=== PATIENT | male | born 1990 | race Caucasian/White ===

== ENCOUNTER 2018-02-19 22:16 | Emergency (ER) | payer OTHER ==
[2018-02-19] MEDS ORDERED: CEPHALEXIN 500 MG CAP PO ONE (23:31)
[2018-02-19] MEDS ORDERED: CEPHALEXIN 500MG PREPACK#4 BTL TAKEHOME ONE (23:31)
[2018-02-19] MEDS ORDERED: TDAP ADULT 0.5 ML INJ (BOOSTRIX) IM ONE (23:31)
--- NOTE | 2018-02-19 23:31 | EDPHY ---
H & P Stated Complaint: elbow to lip, lip lac , 45 min ago, no loc Time Seen by Provider: 02/19/18 23:31 HPI/ROS: HPI CHIEF COMPLAINT: Elbow to face, left upper lip laceration through and through. HISTORY OF PRESENT ILLNESS: Very pleasant 27-year-old male, otherwise healthy without any significant medical history he is unsure of his tetanus shot is up- to-date, he presents emergency room after was playing basketball tonight and had an elbow strike his face. He sustained a left upper lip laceration. The characteristics of the lip laceration are complex it is a jagged 3 piece lip laceration through and through and involve the vermilion border in a jagged area 1 whole laceration but 3 edges. Patient states he elbow struck his face struck his left upper lip his tooth caused the through and through lip laceration. Denies any other areas of trauma, denies LOC. Denies significant facial pain. Past Medical History: Denies significant medical history Past Surgical History: No significant surgical history Social History: Denies drugs alcohol tobacco. Family History: Noncontributory ROS REVIEW OF SYSTEMS: A comprehensive 10 point review of systems is otherwise negative aside from elements mentioned in the history of present illness. Exam Constitutional triage nursing summary reviewed, vital signs reviewed, awake/ alert. Eyes normal conjunctivae and sclera, EOMI, PERRLA. Oropharynx: Left upper lip: This shows a 3 cm jagged 3 piece laceration that involves the vermilion border of the left upper lateral lip. It goes through and through the left upper lip. The inner left upper oral lip laceration is 3 cm in length. Gaping. The external left upper lip laceration is jagged involves the vermilion border goes through the vermilion border and has a 3 segment piece. There is a v-shaped piece laceration in between the 2 edges of the laceration. Dentition intact. HENT normal inspection, atraumatic, moist mucus membranes, no epistaxis, neck supple/ no meningismus, no raccoon eyes. Respiratory clear to auscultation bilaterally, normal breath sounds, no respiratory distress, no wheezing. Cardiovascular rate normal, regular rhythm, no murmur, no edema, distal pulses normal. Gastrointestinal soft, non-tender, no rebound, no guarding, normal bowel sounds, no distension, no pulsatile mass. Genitourinary no CVA tenderness. Musculoskeletal no midline vertebral tenderness, full range of motion, no calf swelling, no tenderness of extremities, no meningismus, good pulses, neurovascularly intact. Skin pink, warm, & dry, no rash, left upper lip laceration Neurologic awake, alert and oriented x 3, AAOx3, moves all 4 extremities equally, motor intact, sensory intact, CN II-XII intact, normal cerebellar, normal vision, normal speech. Psychiatric normal mood/affect. Heme/Lymph/Immune no lymphadenopathy. Differential Diagnosis: Includes but is not limited to: Left upper lip laceration complex, through and through lip laceration, vermilion border laceration, blunt force trauma to the face. Lip swelling. Need for tetanus shot. Medical Decision Making: Plan for this patient I do not feel that he needs any imaging, however his laceration will need to be repaired under sterile conditions after copious cleaning. Will update his tetanus shot. Re-evaluation: Laceration Repair Procedure: Verbal Consent was obtained, Under sterile conditions, The patient had lidocaine without epinephrine used approximately 5ccs to local anesthetize the Left Upper Lip 3CM through and through complex Laceration. The wound was copiously irrigated with sterile fluid, the wound was explored for foreign bodies there were none visualized, the wound was explored with a sterile glove to the base. There are no deep structures involved, including no arterial injury. 5 Interrupted 6.O prolene on the external lip laceration interrupted Sutures were placed in this patient's laceration. He had good close approximation of the wound edges. He Tolerated this well. Laceration Repair Procedure: Verbal Consent was obtained, Under sterile conditions, The patient had lidocaine with epinephrine used approximately 3ccs to local anesthetize the Inner upper left lateral 3CM complex Laceration. The wound was copiously irrigated with sterile fluid, the wound was explored for foreign bodies there were none visualized, the wound was explored with a sterile glove to the base. There are no deep structures involved, including no arterial injury. FOUR 5.O Adsorbable interrupted Sutures were placed in this patient's laceration. He had good close approximation of the wound edges. He Tolerated this well. Patient understands this laceration most likely scar. I did my best to line up the vermilion border appropriately. Additionally his wound was copiously irrigating clean. Wound was closed with close approximation of the wound edges as best as possible. Patient understands that this will lead to his car, he understands keep it out of direct sunlight use sunscreen over the next 6 months. Keep the area protected. Additionally understands to watch for infection. This includes redness, swelling, drainage, pus. Additionally understands have sutures on the external lip laceration removed in 7 days. As for the intraoral lip laceration these are absorbable sutures and understands the will fall out the next 2 weeks. He understands to minimize direct contact with this tongue Keflex and tetanus have been given in the emergency room. Keflex to prevent infection outpatient. Source: Patient - Personal History Current Tetanus/Diphtheria Vaccine: Unsure - Medical/Surgical History Hx Asthma: No Hx Chronic Respiratory Disease: No Hx Diabetes: No Hx Cardiac Disease: No Hx Renal Disease: No Hx Cirrhosis: No Hx Alcoholism: No Hx HIV/AIDS: No Hx Splenectomy or Spleen Trauma: No Other PMH: denies - Social History Smoking Status: Never smoked Constitutional: Initial Vital Signs Temperature (C) 37.0 C 02/19/18 22:25 Heart Rate 84 02/19/18 22:25 Respiratory Rate 18 02/19/18 22:25 Blood Pressure 136/91 H 02/19/18 22:25 O2 Sat (%) 97 02/19/18 22:25 O2 Delivery Mode Room Air Allergies/Adverse Reactions: No Known Allergies Allergy (Unverified 02/19/18 22:25) Home Medications: Medication Instructions Recorded Cephalexin [Keflex] 500 mg PO Q6H #28 cap 02/19/18 Departure - Departure Disposition: Home, Routine, Self-Care Clinical Impression: Laceration Condition: Good Instructions: Laceration (ED), Care For Your Stitches (ED) Additional Instructions: 1. Your sutures need to be removed on the external aspect of your left lip and 7 days. 2. Keep the area clean, dry and protected. Warm soapy water when you get showers fine but nothing directly in the wound. 3. The sutures inside your mouth will dissolve on their own over the next 2 weeks please do not plate with them with her tongue. 4. Return emergency room if you have any worsening symptoms questions or concerns watch for infection 5. Please use cool compresses ice your face as your lip is swollen. Referrals: Javier Brown [Primary Care Provider] - As per Instructions Prescriptions: Cephalexin [Keflex] 500 mg PO Q6H #28 cap
[2018-02-20 00:05] VITALS: BP 137/82
== END 2018-02-20 00:05 | disposition home or self-care (01) ==
PROC: 0CQ0XZZ Repair Upper Lip, External Approach (ICD-10-PCS; principal; 2018-02-19)
DX: S01.511A Laceration without foreign body of lip, initial encounter (principal); Z23 Encounter for immunization; W50.0XXA Accidental hit or strike by another person, initial encounter; Y99.8 Other external cause status; Y93.67 Activity, basketball